=== PATIENT | male | born 1995 | race Two or more races ===

== ENCOUNTER 2017-12-10 14:12 | Emergency (ER) | payer OTHER ==
[~2017-12-10] VITALS: Ht 172.7 cm; Wt 102.6 kg
[2017-12-10 14:21] VITALS: BP 132/75; Ht 172.7 cm; Wt 102.6 kg
== END 2017-12-10 15:35 | disposition home or self-care (01) ==
LOC: ED 14:12
DX: S83.92XA Sprain of unspecified site of left knee, initial encounter (principal); X58.XXXA Exposure to other specified factors, initial encounter; Y93.01 Activity, walking, marching and hiking; Y92.89 Other specified places as the place of occurrence of the external cause; Y99.8 Other external cause status